=== PATIENT | female | born 1975 | race Caucasian/White ===

== ENCOUNTER 2016-12-04 08:02 | Day surgery (SDC) | payer BC ==
[2016-12-04] VITALS (12 sets, daily range): BP systolic 101–126; BP diastolic 65–84; PULSE 72–122; RESP 14–23; Ht 162.6 cm; Wt 74.0 kg
[~2016-12-04] VITALS: Ht 162.6 cm; Wt 74.0 kg
[~2016-12-04 08:02] MED LIST: CEFAZOLIN 2 GM/50 ML (PMX) 50 ML IVPB ONE; SOD CHLORIDE 0.9% 1,000 ML IV SCH
[2016-12-04] MEDS ORDERED: BUPIVACAINE 0.25% (MPF) 30 ML INJ ONE (09:26)
[2016-12-04] MEDS ORDERED: BUSCAPINA PO (09:31)
[2016-12-04] MEDS ORDERED: MIDAZOLAM 1 MG/ML 2 ML INJ ONE (09:36)
[2016-12-04] MEDS ORDERED: FENTAnyl 50 MCG/ML VIAL ONE (09:36)
[2016-12-04] MEDS ORDERED: DEXAMETHASONE 4 MG/ML 1 ML INJ ONE (10:05)
[2016-12-04] MEDS ORDERED: METOCLOPRAMIDE 10 MG INJ ONE (10:05)
[2016-12-04] MEDS ORDERED: CEFAZOLIN 1 GM INJ ONE (10:05)
[2016-12-04] MEDS ORDERED: KETOROLAC 30 MG INJ ONE (10:05)
[2016-12-04] MEDS ORDERED: PROPOFOL 20 ML ONE (10:05)
[2016-12-04] MEDS ORDERED: ONDANSETRON 4 MG INJ ONE (10:05)
[2016-12-04] MEDS ORDERED: ROCURONIUM 50 MG INJ ONE (10:05)
[2016-12-04] MEDS ORDERED: GLYCOPYRROLATE 0.4 MG INJ ONE (10:28)
[2016-12-04] MEDS ORDERED: NEOSTIGMINE 3 MG/3 ML SYRINGE ONE (10:28)
[2016-12-04] MEDS ORDERED: ONDANSETRON 4 MG INJ IV PRN (10:30)
[2016-12-04] MEDS ORDERED: DIPHENHYDRAMINE 50 MG INJ IV PRN (10:30)
[2016-12-04] MEDS ORDERED: MEPERIDINE 25 MG INJ IV PRN (10:30)
[2016-12-04] MEDS ORDERED: METOCLOPRAMIDE 10 MG INJ IV PRN (10:30)
[2016-12-04] MEDS ORDERED: morphine (1 MG/ML) 10ML SYRINGE IV PRN ×2 (10:30)
[2016-12-04] MEDS ORDERED: HYDROCODONE/APAP (5/325) TAB PO ONE (10:30)
[2016-12-04] MEDS ORDERED: HYDROmorphONE (0.2 MG/ML) 10ML SYG IV PRN ×2 (10:30)
[2016-12-04] MEDS: HYDROmorphONE (0.2 MG/ML) 10ML SYG IV PRN ×4 (10:32→11:03)
[2016-12-04] MEDS: morphine (1 MG/ML) 10ML SYRINGE IV PRN ×2 (10:43→10:53)
--- NOTE | 2016-12-04 12:38 | OPR ---
DATE OF OPERATION: 12/04/2016 INDICATION: This is a 41-year-old female with symptomatic gallstones. She requests surgical excisi on of her gallbladder. Risks, alternatives, benefits, and personnel were discussed with the patient . Patient expressed understanding and consents to the operation. PREOPERATIVE DIAGNOSIS: Symptomatic gallstones. POSTOPERATIVE DIAGNOSIS: Symptomatic gallstones. OPERATION: Laparoscopic cholecystectomy. SURGEON: Brian Evans MD SPECIMENS: Gallbladder. COMPLICATIONS: None. ANESTHESIA: General. PROCEDURE: The patient was taken to the OR and prepped and draped in the usual sterile fashion. Hodges rgical timeout was performed. IV antibiotics were given. Infraumbilical incision was made transver sely with a 15 blade. Dissection cautery was carried out to fascia was divided with curved Kc sci ssors. An 0 Vicryl U-stitch was placed into the fascia. Balloon Irma trocar was introduced. Pne umoperitoneum was established. Mid epigastric 12 mm optical trocar and right upper quadrant and rig ht upper flank 5 mm optical trocars placed under direct visualization. Upon initial inspection, the re were some adhesions to the gallbladder which taken down bluntly. The cystic duct was identified. The critical view was established. The cystic duct was divided using a 35 mm [place] vascular deacon d stapler. The cystic artery is divided using a 35 mm [place] vascular load stapler. Additional cl ips were placed for reinforcement. The gallbladder was taken off the gallbladder bed. There was go od hemostasis. Gallbladder was retrieved using an EndoCatch bag. Ports were removed under direct v isualization, 0 Vicryl U-stitch was tied down. Skin was closed using skin mika. Local anesthesi a was injected. Dry dressings were applied. Dictated By: BRIAN EVANS MD SB/FAVIAN Conf#: [id number] DID#: [id number]
== END 2016-12-04 12:25 | disposition home or self-care (01) ==
LOC: SDS 08:02
PROVIDERS: ATTEND Surgery
DX: K80.10 Calculus of gallbladder with chronic cholecystitis without obstruction (principal)
CPT/HCPCS: 47562; 84703; 88304; J0690; J1100; J1170; J1885; J2250; J2270; J2405; J2710; J2765; J3010; Z7512; Z7610